=== PATIENT | male | born 1960 | race Caucasian/White ===

== ENCOUNTER 2019-03-05 16:28 | Emergency (ER) | payer BC ==
[2019-03-05 17:43] LABS: Absolute Lymphocytes (CBC) 2.6 K/uL (0.7-4.9); Basophils % 0.7 % (0-1.3); Hematocrit 45.6 % (39.6-49.0); Lymphocytes % 23.7 % (15.3-44.8); MPV 9.8 fL (7.6-11.3); RBC Red Blood Cell Count 4.93 M/uL (4.33-5.43)
[2019-03-05] MEDS ORDERED: METRONIDAZOLE 500mg IVPB 500 MG/100 ML BAG IV ONE (17:57)
[2019-03-05] MEDS ORDERED: FENTANYL CITR 100 MCG/2 ML ONE (17:57)
[2019-03-05] MEDS ORDERED: Levofloxacin 750mg IV 750 MG/150 ML BAG IV ONE (17:57)
[2019-03-05] MEDS ORDERED: NA CHLORIDE 0.9% 1,000 ML ONE (17:57)
[2019-03-05] MEDS ORDERED: ONDANSETRON 4 MG/2 ML VIAL ONE (17:57)
[2019-03-05 18:04] LABS: Urine Blood TRACE (NEG); Urine Glucose NEGATIVE (NEG); Urine Protein NEGATIVE (NEG)
[2019-03-05 18:45] LABS: Albumin 3.6 g/dL (3.4-5.0); Bilirubin Direct 0.2 mg/dL (0-0.2); Bilirubin Total 0.6 mg/dL (0.2-1.0); Potassium 3.8 mmol/L (3.5-5.1); Protein, Total 7.7 g/dL (6.4-8.2)
[2019-03-05] MEDS ORDERED: CEFTRIAXONE/SWI 1gm 1 GM/10 ML SYR ONE (19:31)
--- NOTE | 2019-03-05 19:33 | RAD REPORT ---
EXAM DESCRIPTION: CT - Abdomen Pelvis W Contrast - 03/05/2019 7:05 pm CLINICAL HISTORY: Abdominal pain, constipation followed by diarrhea, history of hip replacement COMPARISON: None. TECHNIQUE: Biphasic, helical CT imaging of the abdomen and pelvis was performed following 100 ml non -ionic IV contrast. Oral contrast was given. All CT scans are performed using dose optimization technique as appropriate and may include automated exposure control or mA/KV adjustment according to patient size. FINDINGS: No suspicious findings in the lung bases. The liver, spleen, and pancreas show no suspicious findings. At least 2 small gallstones are present. No evidence for active gallbladder disease. No biliary tree dilatation. Symmetric renal function is seen with no hydronephrosis or suspicious renal mass. No pyelonephritis o r acute parenchymal process. Urinary bladder is contracted limiting detail. There is further limitati on due to spray artifact from the left hip prosthesis. The spray artifact limits pelvic floor assessm ent. No adrenal abnormalities. No gastric dilatation or wall thickening. Small bowel loops are not dilated but there are several pro minent small bowel loops. No appendicitis findings. Patient has a 4 centimeter long segment of mid si gmoid colon showing prominent circumferential wall thickening. Patient has sigmoid diverticulosis. Th ere is stranding in the adjacent fat. In the acute clinical setting, acute sigmoid diverticulitis is most likely. Given the masslike appearance, malignancy cannot be excluded and follow-up colonoscopy i s recommended after medical management of acute diverticulitis. No other acute colon finding. No free air or pneumatosis. No other area of inflammatory stranding. No mass or bulky lymphadenopathy. Patient has a small fat only umbilical hernia. No suspicious bony findings. IMPRESSION: Approximately 4 centimeter long segment of mid sigmoid colon showing prominent wall thic kening with adjacent inflammatory edematous stranding. No abscess or other emergent component. Acute diverticulitis is the most likely etiology. Given the masslike appearance, malignancy cannot be excluded and follow-up colonoscopy after medical management would be recommended.
--- NOTE | 2019-03-05 19:38 | ER ---
Nurse's Notes [facility] Name: Johnny Butler Age: 58 yrs Sex: Male : 1960 Arrival Date: 03/05/2019 Time: 16:30 Bed 8 Private MD: Diagnosis: Abdominal tenderness;Diverticular disease of intestine;Diverticulitis of small intestine without perforation or abscess without bleeding-ro mass Presentation: 03/05 16:48 Presenting complaint: Patient states: abd cramping and constipation since yesterday. ss Patient took milk of magnesia to relief constipation, but now has watery stool. Denies N/V. Family member reports patient had low grade temperature and headache that began this morning as well. Transition of care: patient was not received from another setting of care. Onset of symptoms was March 04, 2019. Risk Assessment: Do you want to hurt yourself or someone else? Patient reports no desire to harm self or others. Initial Sepsis Screen: Does the patient meet any 2 criteria? No. Patient's initial sepsis screen is negative. Does the patient have a suspected source of infection? No. Patient's initial sepsis screen is negative. Care prior to arrival: None. 16:48 Method Of Arrival: Ambulatory ss 16:48 Acuity: CARMEN 3 ss Historical: - Allergies: 16:52 No Known Allergies; ss - Home Meds: 16:52 None [Active]; ss - PMHx: 16:52 None; ss - PSHx: 16:52 hip replacement; pelvis repair; ss - Immunization history:: Adult Immunizations up to date. - Social history:: Smoking status: Patient uses tobacco products, chewing tobacco. - Ebola Screening: : Patient denies exposure to infectious person Patient denies travel to an Ebola-affected area in the 21 days before illness onset. - Family history:: not pertinent. Screenin:21 Abuse screen: Denies threats or abuse. Denies injuries from another. Nutritional sv screening: No deficits noted. Tuberculosis screening: No symptoms or risk factors identified. Fall Risk None identified. Assessment: 17:35 General: Appears in no apparent distress. comfortable, well groomed, well developed, sv Behavior is calm, cooperative, appropriate for age. Pain: Complains of pain in left lower quadrant and left upper quadrant Pain currently is 3 out of 10 on a pain scale. Quality of pain is described as tender, Pain began 1 day ago. Is intermittent. Neuro: Level of Consciousness is awake, alert, obeys commands, Oriented to person, place, time, situation, Moves all extremities. Full function Gait is steady. Cardiovascular: Patient's skin is warm and dry. Respiratory: Airway is patent Respiratory effort is even, unlabored, Respiratory pattern is regular, symmetrical. GI: Abdomen is flat, non-distended, Stools are reported to be diarrhea. Abd is soft X 4 quads Abd is non tender in right upper quadrant and right lower quadrant Abdomen is tender to palpation in left lower quadrant and left upper quadrant. Derm: Skin is pink, warm \T\ dry. Musculoskeletal: Range of motion: intact in all extremities. 17:49 Reassessment: Went to give pt medications ordered and he stated that he did not want sv any pain medication at this time. He stated that he would inform us if he needed any pain meds. 18:40 Reassessment: Patient appears in no apparent distress at this time. No changes from sv previously documented assessment. Patient and/or family updated on plan of care and expected duration. Pain level reassessed. Patient is alert, oriented x 3, equal unlabored respirations, skin warm/dry/pink. Family at the bedside. 19:15 Reassessment: Patient appears in no apparent distress at this time. Patient and/or cc3 family updated on plan of care and expected duration. Pain level reassessed. Patient is alert, oriented x 3, equal unlabored respirations, skin warm/dry/pink. Received this male patient from morning shift BRENDA Hartman as a case of abdominal pain. Patient just came back from CT scan department, awaiting result. Patient with IV cannula gauge 20 at the right ACV with ongoing IVF bolus of NS 1liter infusing well. Patient not in pain nor nauseated. Patient denies pain at this time. General: Appears in no apparent distress. comfortable, Behavior is calm, cooperative, appropriate for age. Pain: Denies pain. Neuro: Level of Consciousness is awake, alert, obeys commands, Oriented to person, place, time, situation, Appropriate for age. Cardiovascular: Denies chest pain, Capillary refill < 3 seconds Patient's skin is warm and dry. Respiratory: Airway is patent Respiratory effort is even, unlabored, Respiratory pattern is regular, symmetrical. GI: Abdomen is round non-distended, Bowel sounds present X 4 quads. : No signs and/or symptoms were reported regarding the genitourinary system. EENT: No signs and/or symptoms were reported regarding the EENT system. Derm: Skin is intact, is healthy with good turgor, Skin is pink, warm \T\ dry. normal. Musculoskeletal: Circulation, motion, and sensation intact. Range of motion: intact in all extremities. 19:40 Reassessment: LESLY Chavis ordered discharge for the patient but after the Levaquin IV. cc3 20:17 Reassessment: Patient appears in no apparent distress at this time. Patient and/or cc3 family updated on plan of care and expected duration. Pain level reassessed. Patient is alert, oriented x 3, equal unlabored respirations, skin warm/dry/pink. Patient denies pain at this time. 21:05 Reassessment: Patient appears in no apparent distress at this time. Patient and/or cc3 family updated on plan of care and expected duration. Pain level reassessed. Patient is alert, oriented x 3, equal unlabored respirations, skin warm/dry/pink. IV antibiotic completed, patient is for discharge home. Discharge instructions given to patient. IV cannula removed and patient left ER vitally stable and ambulatory with his . No valuables left in the patient's room. Patient denies pain at this time. Patient states feeling better. Patient states symptoms have improved. Vital Signs: 16:52 Pulse 76; Resp 16; Temp 97.3(TE); Pulse Ox 95% on R/A; Weight 77.11 kg; Height 5 ft. 7 ss in. (170.18 cm); Pain 3/10; 17:00 BP 122 / 91; sv 17:53 BP 139 / 94; Pulse 72; Resp 18; Pulse Ox 99% on R/A; sv 18:48 BP 128 / 86; Pulse 68; Resp 18; Pulse Ox 97% ; sv 19:20 BP 122 / 95; Pulse 68; Resp 17 S; Temp 98.3(O); Pulse Ox 98% on R/A; cc3 20:17 BP 122 / 96; Pulse 74; Resp 16 S; Pulse Ox 99% on R/A; cc3 21:00 BP 124 / 89; Pulse 76; Resp 17 S; Pulse Ox 99% on R/A; cc3 16:52 Body Mass Index 26.63 (77.11 kg, 170.18 cm) ED Course: 16:30 Patient arrived in ED. as 16:51 Triage completed. ss 16:52 Arm band placed on right wrist. 16:55 Bravo Saldivar MD is Attending Physician. naun 17:17 Minnie Hawkins, RN is Primary Nurse. sv 17:21 Patient has correct armband on for positive identification. Bed in low position. Call sv light in reach. Door closed. Head of bed elevated. 17:39 Radiology exam delayed due to lab results not completed at this time. (BUN/Creatinine) nj IV insertion attempt and/or patient not having appropriate IV at this time. 17:40 Initial lab(s) drawn, by me, sent to lab. Inserted saline lock: 20 gauge in right sv antecubital area, using aseptic technique. Blood collected. Flushed right antecubital with 5 ml normal saline. 17:52 Awaiting lab results, Awaiting CT Scan. sv 18:00 Warm blanket given. sv 18:19 Warm blanket given. sv 18:[address] Scan. sv 18:[address] via wheelchair. sv 19:01 Report given to Liberty RN and Nicole RN. sv 19:03 Primary Nurse role handed off by Minnie Hawkins RN sv 19:03 Bethel Chavis PA is PHCP. [facility] 19:05 Liberty Guzmán, RN is Primary Nurse. ak1 19:06 CT Abd/Pelvis - IV Contrast Only In Process Unspecified. EDMS 19:37 Anrdae Guzman MD is Referral Physician. naun 19:37 Louis Wilkins MD is Referral Physician. naun 21:05 No provider procedures requiring assistance completed. IV discontinued, intact, cc3 bleeding controlled, No redness/swelling at site. Pressure dressing applied. Administered Medications: 17:48 Drug: NS 0.9% 1000 ml Route: IV; Rate: 1 bolus; Site: right antecubital; sv 20:00 Follow up: Response: No adverse reaction; IV Status: Completed infusion; IV Intake: cc3 1000ml 17:49 Drug: Flagyl 500 mg Volume: 100 ml; Route: IVPB; Rate: 200 ml/hr; Infused Over: 30 sv mins; Site: right antecubital; 18:57 Follow up: Response: No adverse reaction; IV Status: Completed infusion; IV Intake: sv 100ml 19:20 Drug: Rocephin 1 grams Route: IV; Rate: per protocol; Site: right antecubital; cc3 19:30 Follow up: Response: No adverse reaction; IV Status: Completed infusion; IV Intake: [id number] 19:25 Drug: levofloxacin 750 mg Volume: 150 ml; Route: IVPB; Infused Over: 90 mins; Site: cc3 right antecubital; 21:05 Follow up: Response: No adverse reaction; IV Status: Completed infusion; IV Intake: cc3 150ml 21:40 Not Given (Patient Refused): fentaNYL (PF) 25 mcg IVP once cc3 21:40 Not Given (Patient Refused): Zofran 4 mg IVP once; over 2 minutes cc3 Intake: 18:57 IV: 100ml; Total: 100ml. sv 19:30 IV: 10ml; Total: 110ml. cc3 20:00 IV: 1000ml; Total: 1110ml. cc3 21:05 IV: 150ml; Total: 1260ml. cc3 Outcome: 19:37 Discharge ordered by . naun 21:05 Discharged to home ambulatory, with family. cc3 21:05 Condition: stable 21:05 Discharge instructions given to patient, family, Instructed on discharge instructions, follow up and referral plans. medication usage, Demonstrated understanding of instructions, follow-up care, medications, Prescriptions given X 3. 21:06 Patient left the ED. cc3 Signatures: Dispatcher [employer] Minnie Angeles RN RN sv Anderson, Corey, MD MD cha Mickail, Joel, PA PA jmm Martinez, Amelia as Smirch, Shelby, RN RN ss Krenek, Amber, RN RN Kael Rainey Charlene cc3
--- NOTE | 2019-03-05 19:38 | EDPHYS ---
Physician Documentation [facility] Name: Johnny Butler Age: 58 yrs Sex: Male : 1960 Arrival Date: 03/05/2019 Time: 16:30 Bed 8 Private MD: ED Physician Bravo Saldivar HPI: 03/05 17:37 This 58 yrs old Male presents to ER via Ambulatory with complaints of naun Abdominal Pain, Fever, Headache. 17:37 This 58 yrs old Male presents to ER via Ambulatory with complaints of naun Abdominal Pain, Fever, Headache. 17:37 The patient reports fever. Onset: The symptoms/episode began/occurred 1 day(s) ago. naun Modifying factors: there are no obvious modifying factors. Associated signs and symptoms: Pertinent positives: abdominal pain, chills, headache. Severity of symptoms: At their worst the symptoms were mild moderate in the emergency department the symptoms are unchanged. The patient has not experienced similar symptoms in the past. Historical: - Allergies: 16:52 No Known Allergies; ss - Home Meds: 16:52 None [Active]; ss - PMHx: 16:52 None; ss - PSHx: 16:52 hip replacement; pelvis repair; ss - Immunization history:: Adult Immunizations up to date. - Social history:: Smoking status: Patient uses tobacco products, chewing tobacco. - Ebola Screening: : Patient denies exposure to infectious person Patient denies travel to an Ebola-affected area in the 21 days before illness onset. - Family history:: not pertinent. ROS: 17:37 Constitutional: Negative for fever, chills, and weight loss, Eyes: Negative for injury, naun pain, redness, and discharge, ENT: Negative for injury, pain, and discharge, Neck: Negative for injury, pain, and swelling, Cardiovascular: Negative for chest pain, palpitations, and edema, Respiratory: Negative for shortness of breath, cough, wheezing, and pleuritic chest pain, Back: Negative for injury and pain, : Negative for injury, bleeding, discharge, and swelling, MS/Extremity: Negative for injury and deformity, Skin: Negative for injury, rash, and discoloration, Neuro: Negative for headache, weakness, numbness, tingling, and seizure, Psych: Negative for depression, anxiety, suicide ideation, homicidal ideation, and hallucinations, Allergy/Immunology: Negative for hives, rash, and allergies, Endocrine: Negative for neck swelling, polydipsia, polyuria, polyphagia, and marked weight changes, Hematologic/Lymphatic: Negative for swollen nodes, abnormal bleeding, and unusual bruising. 17:37 Abdomen/GI: Positive for abdominal pain, of the left upper quadrant and left lower quadrant. Exam: 17:37 Head/Face: Normocephalic, atraumatic. Eyes: Pupils equal round and reactive to light, naun extra-ocular motions intact. Lids and lashes normal. Conjunctiva and sclera are non-icteric and not injected. Cornea within normal limits. Periorbital areas with no swelling, redness, or edema. ENT: Nares patent. No nasal discharge, no septal abnormalities noted. Tympanic membranes are normal and external auditory canals are clear. Oropharynx with no redness, swelling, or masses, exudates, or evidence of obstruction, uvula midline. Mucous membranes moist. Neck: Trachea midline, no thyromegaly or masses palpated, and no cervical lymphadenopathy. Supple, full range of motion without nuchal rigidity, or vertebral point tenderness. No Meningismus. Chest/axilla: Normal chest wall appearance and motion. Nontender with no deformity. No lesions are appreciated. Cardiovascular: Regular rate and rhythm with a normal S1 and S2. No gallops, murmurs, or rubs. Normal PMI, no JVD. No pulse deficits. Respiratory: Lungs have equal breath sounds bilaterally, clear to auscultation and percussion. No rales, rhonchi or wheezes noted. No increased work of breathing, no retractions or nasal flaring. Back: No spinal tenderness. No costovertebral tenderness. Full range of motion. Male : Normal genitalia with no discharge or lesions. Skin: Warm, dry with normal turgor. Normal color with no rashes, no lesions, and no evidence of cellulitis. MS/ Extremity: Pulses equal, no cyanosis. Neurovascular intact. Full, normal range of motion. Neuro: Awake and alert, GCS 15, oriented to person, place, time, and situation. Cranial nerves II-XII grossly intact. Motor strength 5/5 in all extremities. Sensory grossly intact. Cerebellar exam normal. Normal gait. Psych: Awake, alert, with orientation to person, place and time. Behavior, mood, and affect are within normal limits. 17:37 Constitutional: The patient appears febrile. 17:37 Abdomen/GI: Inspection: abdomen appears normal, Bowel sounds: normal, Palpation: mild abdominal tenderness, in the left upper quadrant and left lower quadrant. Vital Signs: 16:52 Pulse 76; Resp 16; Temp 97.3(TE); Pulse Ox 95% on R/A; Weight 77.11 kg; Height 5 ft. 7 ss in. (170.18 cm); Pain 3/10; 17:00 BP 122 / 91; sv 17:53 BP 139 / 94; Pulse 72; Resp 18; Pulse Ox 99% on R/A; sv 18:48 BP 128 / 86; Pulse 68; Resp 18; Pulse Ox 97% ; sv 19:20 BP 122 / 95; Pulse 68; Resp 17 S; Temp 98.3(O); Pulse Ox 98% on R/A; cc3 20:17 BP 122 / 96; Pulse 74; Resp 16 S; Pulse Ox 99% on R/A; cc3 21:00 BP 124 / 89; Pulse 76; Resp 17 S; Pulse Ox 99% on R/A; cc3 16:52 Body Mass Index 26.63 (77.11 kg, 170.18 cm) ss MDM: 16:55 Patient medically screened. naun 17:37 Data reviewed: vital signs, nurses notes. Data interpreted: school lunch monitor: not naun applicable for this patient encounter. 21:15 Counseling: I had a detailed discussion with the patient and/or guardian regarding: the [facility] historical points, exam findings, and any diagnostic results supporting the discharge/admit diagnosis, lab results, radiology results, the need for outpatient follow up, to return to the emergency department if symptoms worsen or persist or if there are any questions or concerns that arise at home. ED course: Patient advised of the need for follow up colonoscopy due to differential of malignancy. Family understood and agrees with the plan of care. . 03/05 17:20 Order name: Basic Metabolic Panel; Complete Time: 18:48 sv 03/05 17:20 Order name: CBC with Diff; Complete Time: 18:48 03/05 17:20 Order name: Creatinine for Radiology; Complete Time: 18:48 sv 03/05 17:20 Order name: Hepatic Function; Complete Time: 18:48 03/05 17:20 Order name: Lipase; Complete Time: 18:48 sv 03/05 17:37 Order name: Urine Dipstick--Ancillary (enter results); Complete Time: 18:48 eb 03/05 17:20 Order name: IV Saline Lock; Complete Time: 17:50 sv 03/05 17:35 Order name: CT Abd/Pelvis - IV Contrast Only; Complete Time: 19:36 naun 03/05 17:20 Order name: Labs collected and sent; Complete Time: 17:50 sv Administered Medications: 17:48 Drug: NS 0.9% 1000 ml Route: IV; Rate: 1 bolus; Site: right antecubital; sv 20:00 Follow up: Response: No adverse reaction; IV Status: Completed infusion; IV Intake: cc3 1000ml 17:49 Drug: Flagyl 500 mg Volume: 100 ml; Route: IVPB; Rate: 200 ml/hr; Infused Over: 30 sv mins; Site: right antecubital; 18:57 Follow up: Response: No adverse reaction; IV Status: Completed infusion; IV Intake: sv 100ml 19:20 Drug: Rocephin 1 grams Route: IV; Rate: per protocol; Site: right antecubital; cc3 19:30 Follow up: Response: No adverse reaction; IV Status: Completed infusion; IV Intake: [id number] 19:25 Drug: levofloxacin 750 mg Volume: 150 ml; Route: IVPB; Infused Over: 90 mins; Site: cc3 right antecubital; 21:05 Follow up: Response: No adverse reaction; IV Status: Completed infusion; IV Intake: cc3 150ml 21:40 Not Given (Patient Refused): fentaNYL (PF) 25 mcg IVP once cc3 21:40 Not Given (Patient Refused): Zofran 4 mg IVP once; over 2 minutes cc3 Disposition: 03/06 09:50 Co-signature as Attending Physician, Bravo Saldivar MD I agree with the assessment and naun plan of care. Disposition: 03/05/19 19:37 Discharged to Home. Impression: Abdominal tenderness, Diverticular disease of intestine, Diverticulitis of small intestine without perforation or abscess without bleeding - ro mass. - Condition is Stable. - Discharge Instructions: Abdominal Pain, Adult, Diverticulitis, Diverticulitis, [id number], Colonoscopy, Abdominal Pain, Adult, [id number], Colonoscopy, [id number]. - Prescriptions for Bentyl 20 mg Oral Tablet - take 1 tablet by ORAL route every 6 hours As needed; 20 tablet. Flagyl 500 mg Oral Tablet - take 1 tablet by ORAL route every 6 hours for 10 days; 40 tablet. Levaquin 750 mg Oral Tablet - take 1 tablet by ORAL route once daily for 10 days; 10 tablet. - Medication Reconciliation Form, Thank You Letter, Antibiotic Education, Prescription Opioid Use form. - Follow up: Private Physician; When: 2 - 3 days; Reason: Recheck today's complaints, Continuance of care, Re-evaluation by your physician. Follow up: Andrae Guzman; When: 2 - 3 days; Reason: Recheck today's complaints, Continuance of care, Re-evaluation by your physician. Follow up: Louis Wilkins; When: 5 - 6 days; Reason: Recheck today's complaints, Continuance of care, Re-evaluation by your physician. - Problem is new. - Symptoms have improved. Signatures: Dispatcher [employer] Minnie Angeles RN RN Bravo Fuller MD MD cha Mickail, Joel, PA PA jmm Smirch, Shelby, RN RN ss Nicole Santacruz cc3 Corrections: (The following items were deleted from the chart) 03/05 21:06 19:37 03/05/2019 19:37 Discharged to Home. Impression: Abdominal tenderness; cc3 Diverticular disease of intestine; Diverticulitis of small intestine without perforation or abscess without bleeding - ro mass. Condition is Stable. Discharge Instructions: Abdominal Pain, Adult, Diverticulitis, Diverticulitis, [id number], Abdominal Pain, Adult, [id number]. Prescriptions for Bentyl 20 mg Oral Tablet - take 1 tablet by ORAL route every 6 hours As needed; 20 tablet, Flagyl 500 mg Oral Tablet - take 1 tablet by ORAL route every 6 hours for 10 days; 40 tablet, Levaquin 750 mg Oral Tablet - take 1 tablet by ORAL route once daily for 10 days; 10 tablet. and Forms are Medication Reconciliation Form, Thank You Letter, Antibiotic Education, Prescription Opioid Use. Follow up: Private Physician; When: 2 - 3 days; Reason: Recheck today's complaints, Continuance of care, Re-evaluation by your physician. Follow up: Andrae Guzman; When: 2 - 3 days; Reason: Recheck today's complaints, Continuance of care, Re-evaluation by your physician. Follow up: Louis Wilkins; When: 5 - 6 days; Reason: Recheck today's complaints, Continuance of care, Re-evaluation by your physician. Problem is new. Symptoms have improved. naun
== END 2019-03-05 21:06 | disposition home or self-care (01) ==
LOC: ER 16:28
DX: K57.12 Diverticulitis of small intestine without perforation or abscess without bleeding (principal); Z72.0 Tobacco use
CPT/HCPCS: 36415; 74177; 80048; 80076; 81003; 83690; 85025; 96365; 96366; 96367; 96375; 99284; J0696; J2405; J3010; J7030; Q9967